=== PATIENT | male | born 1955 | race Hispanic/Latino ===

== ENCOUNTER 2019-02-21 12:40 | Emergency (ER) | payer SELFPAY | END 2019-02-21 14:07 | disposition home or self-care (01) | LOC: EDH 12:40 | DX: J40 Bronchitis, not specified as acute or chronic (principal); R42 Dizziness and giddiness; Z90.49 Acquired absence of other specified parts of digestive tract | CPT/HCPCS: 36415; 71045; 83880; 84484; 93005 ==

== ENCOUNTER → 2019-07-05 | Outpatient (CLI) | payer OTHER | END | disposition home or self-care (01) | LOC: OIH 09:56 | PROVIDERS: ATTEND Internal Medicine Cardiovascular Disease | DX: Z13.6 Encounter for screening for cardiovascular disorders (principal) | CPT/HCPCS: 75571 ==

== ENCOUNTER 2024-04-10 10:04 | Day surgery (SDC) | payer MEDICARE ==
[2024-04-06 10:14] LABS: BASOPHILS # (AUTO) 0.06 K/uL (0.00-0.20); BASOPHILS % (AUTO) 0.6 % (0.0-5.0); EOSINOPHILS # (AUTO) 0.06 K/uL (0.00-0.70); EOSINOPHILS % (AUTO) 0.6 % (0.0-8.0); HEMATOCRIT 45.9 % (42-54); IMMATURE GRANULOCYTE ABSOLUTE 0.04 K/uL (0-1); LYMPHOCYTES # (AUTO) 1.5 K/uL (1.0-4.8); LYMPHOCYTES % (AUTO) 14.7 % (21.0-51.0); MEAN CORPUSCULAR HEMOGLOBIN 29.5 pg (27.0-33.0); MEAN CORPUSCULAR VOLUME 86.9 fL (79-99); MONOCYTES # (AUTO) 0.8 K/uL (0.1-1.0); MONOCYTES % (AUTO) 7.5 % (3.0-13.0); NEUTROPHILS # (AUTO) 7.9 K/uL (1.8-7.7); NEUTROPHILS % (AUTO) 76.2 % (40.0-77.0); PLATELET COUNT (AUTO) 300 K/uL (130-400); RED BLOOD CELL COUNT(AUTO) 5.28 MIL/uL (4.50-6.20); RED CELL DISTRIBUTION WIDTH 13.6 % (11.0-15.5); WHITE BLOOD COUNT (AUTO) 10.3 K/uL (4.8-10.8)
[2024-04-06 10:25] VITALS: BP 134/81; PULSE 86; RESP 18
[2024-04-06 10:28] LABS: CREATININE 1.4 mg/dL (0.5-1.3); POTASSIUM 4.1 mmol/L (3.5-5.1)
[2024-04-06 10:36] LABS: APPEARANCE,URINE CLEAR (CLEAR); BILIRUBIN,URINE NEGATIVE (NEGATIVE); COLOR,URINE LIGHT-YELLOW (YELLOW); GLUCOSE, URINE (UA) NEGATIVE (NEGATIVE); KETONES,URINE NEGATIVE (NEGATIVE); LEUKOCYTE ESTERASE ,URINE NEGATIVE Leu/uL (NEGATIVE); NITRATE,URINE NEGATIVE (NEGATIVE); OCCULT BLOOD,URINE MODERATE (NEGATIVE); PROTEIN,URINE NEGATIVE (NEGATIVE); UROBILINOGEN,URINE 0.2 mg/dL (0.2-1.0)
[2024-04-06 10:47] LABS: ADD UA MICROSCOPIC YES
[2024-04-06 10:51] LABS: BACTERIA,URINE Rare /HPF (None Seen); RBC,URINE 0-1 /HPF (0-1); SQUAMOUS EPITHELIAL CELL,UR Rare /HPF (0-2); WBC,URINE 0-1 /HPF (0-1)
[2024-04-06 10:53] LABS: INR 0.96 (0.85-1.15); PROTHROMBIN TIME 11.4 SEC (9.6-11.6)
[2024-04-06 10:54] LABS: PARTIAL THROMBOPLASTIN TIME 30.2 SEC (26.3-35.5)
[2024-04-06 10:57] LABS: B-TYPE NATRIURETIC PEPTIDE 113 pg/mL (0-100)
[2024-04-10] VITALS (9 sets, daily range): BP systolic 91–152; BP diastolic 57–90; PULSE 67–104; RESP 14–18
[~2024-04-10] VITALS: Ht 175.3 cm; Wt 84.0 kg
[~2024-04-10 10:04] MED LIST: ASPI-1521 PO; ATOR40TA69 PO; CLOP-31 PO; METO25 PO
[2024-04-10] MEDS ORDERED: HEPARIN 10,000 UNIT/10ML (1,000 UNIT/ML) VIAL ONE (10:36)
[2024-04-10] MEDS ORDERED: NITROGLYCERIN 50MG VIAL ONE (10:36)
[2024-04-10] MEDS ORDERED: IOHEXOL-350 75 ML VIAL IV ONE (10:36)
[2024-04-10] MEDS ORDERED: SODIUM BICARB 50MEQ 50ML VIAL 50 ML ONE (10:36)
[2024-04-10] MEDS ORDERED: LIDOCAINE HCL 400MG/20ML VIAL ONE (10:36)
[2024-04-10] MEDS ORDERED: MEPERIDINE-PF 25 MG/ML SYG ONE ×3 (10:47→12:03)
[2024-04-10] MEDS ORDERED: NICARDIPINE 25MG INJ IV ONE (10:48)
[2024-04-10] MEDS ORDERED: MIDAZOLAM HCL 1 MG/ML 2ML VIAL ONE ×3 (10:48→12:03)
[2024-04-10] MEDS: 0.9%NACL 1000ML 1,000 ML IV ONE (10:49)
[2024-04-10] MEDS ORDERED: METOPROLOL TARTRATE 1 MG/ML 5ML VIAL IV ONE ×3 (12:31→12:39)
[2024-04-10] MEDS ORDERED: NITROGLYCERIN 4.1 GM SPRAY TL ONE (12:39)
[2024-04-10] MEDS ORDERED: 0.9%NACL 1000ML 1,000 ML IV SCH (13:00)
== END 2024-04-10 16:30 | disposition home or self-care (01) ==
LOC: DAH 10:04
PROVIDERS: ATTEND Internal Medicine Cardiovascular Disease
DX: I25.119 Atherosclerotic heart disease of native coronary artery with unspecified angina pectoris (principal); I25.2 Old myocardial infarction; E78.5 Hyperlipidemia, unspecified; Z79.01 Long term (current) use of anticoagulants; Z79.899 Other long term (current) drug therapy; Z90.49 Acquired absence of other specified parts of digestive tract; Z95.5 Presence of coronary angioplasty implant and graft; Z98.890 Other specified postprocedural states
CPT/HCPCS: 80048; 83880; 85025; 85610; 85730; 81001; 36415 ×2; 71045; 93005; 85347; 93458; C9600 ×2; C1769 ×2; C1725 ×2; C1874 ×4; C1894; A4649; C1887; J3490 ×7; J7030; J1644 ×2; J2250 ×3; J2175 ×3; Q9967; A4215; A4222; A4221; A4663; A4216; A4606; A4223 ×3; 96360; 96361; 99156; 99157

== ENCOUNTER 2025-02-16 08:24 | Observation (INO) | payer MEDICARE ==
[~2025-02-16] VITALS: Ht 175.3 cm; Wt 85.7 kg
--- NOTE | 2025-02-16 09:00 | ERN ---
General Chief Complaint: Chest Pain Stated Complaint: CP History of Present Illness Initial Comments History of present illness: 70-year-old male with past medical history of hypertension, CAD status post stents, GERD was brought in by EMS with complaints of sudden onset of chest pain since 5:00 a.m. today in the morning. As per the patient he was awake when he started experiencing central chest pain, 2 to 3/10 in intensity, that comes and goes, which lasts for few seconds. He feels nauseous. Denies any radiation of the pain, sweating, shortness of breath, abdominal pain, vomiting, fever, any change in bowel or bladder habits. Patient was treated with aspirin by the EMS personnel. As per the EMS, the initial EKG showed T-wave inversion in lead 3 and AVF. At the time of presentation his pulse rate was 76 per minute, respiratory rate 15 per minute, blood pressure 133/79, saturation 98% on room air As per the cardiac clinical lab scientist report dated 04/19/2024, he had history of inferior wall [place] was found to have severe three-vessel coronary artery disease. He is status post mid and distal RCA stents, high EOMI standing, distal LAD stenting, mid LAD stenting. Mirtha Lindsey II, MD was ballistic technician at that time. As per the patient he missed his cardiology appointment this November. Timing/Duration: 4-6 hours Location: central Radiation: no radiation Activities at Onset: none Prior Chest Pain/Cardiac Brian: cardiac cath, heart attack Past Medical History Past Medical History: CAD, Hypertension Past Surgical History: Appendectomy, Other Surgical History Other: CARDIAC STENTS Social History Social History: ETOH ROS Dictation REVIEW OF SYSTEMS Positive for chest pain CONSTITUTIONAL: Denies fevers, chills, or night sweats. No unintentional weight loss reported. ENT: No hearing loss, otalgia, otorrhea, rhinitis, rhinorrhea, hoarseness, or sore throat. CARDIOVASCULAR: Denies any exertional angina, dyspnea on exertion, orthopnea, paroxysmal nocturnal dyspnea, palpitations claudication. PULMONARY: Denies any shortness of breath, cough, phlegm / sputum, hemoptysis, pleuritic chest pain. SLEEP: Denies morning headaches, daytime somnolence or napping. Denies difficulty falling asleep, staying asleep, waking from sleep. Denies knowledge of snoring. GASTROINTESTINAL: Denies any type of dysphagia to either liquids or solids. Denies nausea, vomiting, abdominal pain, diarrhea, constipation, blood in stools . NEUROLOGICAL: Denies headache, motor weakness, sensory deficit, vertigo / spinning sensation, gait abnormalities, or tremors. GENITOURINARY: Denies frequency, urgency, nocturia, hematuria or incontinence, low urinary stream, straining to void, urinary intermittency or hesitancy ENDOCRINOLOGY: Denies polyuria, polydipsia, polyphagia or heat / cold intolerance. HEMATOLOGY: Denies thrombophilia / previous clots, or coagulopathy / bleeding disorders. ONCOLOGIC: Denies personal history of malignancy. DERMATOLOGIC: Denies rashes or pruritus. PSYCHIATRIC: Denies any suicidal or homicidal ideation. Denies hallucinations. Physical Exam Physical Exam Dictation PHYSICAL EXAM GENERAL APPEARANCE: Well nourished . Awake and alert. Oriented to time, place and person. No acute cardiopulmonary distress. HEENT: Head normocephalic , atraumatic. Sclera anicteric . Pupils are round and reactive. Extraocular movements intact . No conjunctival injection. No nasal congestion. No throat congestion .Oral mucosa moist. NECK: Supple. No JVD. No thyromegaly. No submental, submandibular, pre- /postauricular, occipital or supraclavicular lymphadenopathy. No carotid bruits. CHEST: Normal chest expansion. No Telemetry. LUNGS: No wheezing or rales CARDIOVASCULAR: Regular rate and rhythm. Heart sounds were muffled . ABDOMEN: Soft, nontender, and nondistended. There is no rebound tenderness, voluntary guarding, or rigidity. No hepatosplenomegaly. Bowel sounds normal in all four quadrants . NEUROLOGICAL: Cranial nerves II-XII grossly intact. Motor is 5/5 in bilateral upper and lower extremities . No sensory deficits. EXTREMITIES: No edema, No cyanosis , No clubbing. Good capillary refill. SKIN: No skin breakdown. No rashes or lesions . PSYCHIATRY: Normal affect .No auditory or visual hallucinations. Normal speech. No dysarthria. Results Laboratory and Microbiology Lab and Micro Result Laboratory Tests Test 02/16/25 09:00 02/16/25 09:38 White Blood Count 10.7 K/uL (4.8-10.8) Red Blood Count 5.14 MIL/uL (4.50-6.20) Hemoglobin 15.6 g/dL (14.0-18.0) Hematocrit 46.8 % (42-54) Mean Corpuscular Volume 91.1 fL (79-99) Mean Corpuscular Hemoglobin 30.4 pg (27.0-33.0) Mean Corpuscular Hemoglobin Concent 33.3 g/dL (32.0-36.0) Red Cell Distribution Width 13.1 % (11.0-15.5) Platelet Count 314 K/uL (130-400) Mean Platelet Volume 8.6 fL (7.5-10.5) Immature Granulocyte % (Auto) 0.3 % (0-1) Neutrophils (%) (Auto) 78.3 % (40.0-77.0) H Lymphocytes (%) (Auto) 14.2 % (21.0-51.0) L Monocytes (%) (Auto) 6.5 % (3.0-13.0) Eosinophils (%) (Auto) 0.2 % (0.0-8.0) Basophils (%) (Auto) 0.5 % (0.0-5.0) Neutrophils # (Auto) 8.4 K/uL (1.8-7.7) H Lymphocytes # (Auto) 1.5 K/uL (1.0-4.8) Monocytes # (Auto) 0.7 K/uL (0.1-1.0) Eosinophils # (Auto) 0.02 K/uL (0.00-0.70) Basophils # (Auto) 0.05 K/uL (0.00-0.20) Absolute Immature Granulocyte (auto 0.03 K/uL (0-1) Nucleated Red Blood Cells 0.0 % (0.0-0.19) Sodium Level 134 mmol/L (136-145) L Potassium Level 3.9 mmol/L (3.5-5.1) Chloride Level 100 mmol/L (101-111) L Carbon Dioxide Level 26 mmol/L (21-32) Blood Urea Nitrogen 20 mg/dL (7-18) H Creatinine 1.6 mg/dL (0.5-1.3) H Glomerular Filtration Rate Calc 46 mL/min (>90) Random Glucose 115 mg/dL (70-105) H Total Calcium 9.0 mg/dL (8.5-10.1) Total Bilirubin 0.4 mg/dL (0.2-1.0) Direct Bilirubin 0.1 mg/dL (0.0-0.3) Aspartate Amino Transf (AST/SGOT) 22 U/L (10-37) Alanine Aminotransferase (ALT/SGPT) 19 U/L (12-78) Alkaline Phosphatase 115 U/L (50-136) Total Creatine Kinase 145 U/L (21-232) Troponin I High Sensitivity 15.8 ng/L (4-75) B-Type Natriuretic Peptide 53 pg/mL (0-100) Total Protein 7.6 g/dL (6.0-8.3) Albumin 3.7 g/dL (3.5-5.0) Lipase 56 U/L (16-77) Urine Color LIGHT-YELLOW (YELLOW) Urine Appearance CLEAR (CLEAR) Urine pH 5.5 (5.0-8.0) Urine Specific [place] 1.015 (1.001-1.031) Urine Protein 10 mg/dL (NEGATIVE) H Urine Glucose (UA) NEGATIVE mg/dL (NEGATIVE) Urine Ketones NEGATIVE mg/dL (NEGATIVE) Urine Occult Blood SMALL (NEGATIVE) H Urine Nitrate NEGATIVE (NEGATIVE) Urine Bilirubin NEGATIVE mg/dL (NEGATIVE) Urine Urobilinogen 0.2 mg/dL (0.2-1.0) Urine Leukocyte Esterase NEGATIVE Leisa/uL Urine RBC 2-5 /HPF (0-1) H Urine WBC 0-1 /HPF (0-1) Urine Bacteria None /HPF (None Seen) EKG/XRAY/US/CT/MRI EKG Comment Regular sinus rhythm with a ventricular rate of 76 beats per minute Left axis deviation VA interval 189, QTC 410 T-wave inversion in lead 3, AVF No ST segment elevation or depression seen Orders, Meds, Vital Signs Orders Procedure Category Date Status Time Cardiac Panel LAB 02/16/25 Complete 08:35 Cbc With Differential LAB 02/16/25 Complete 08:35 Basic Metabolic Panel LAB 02/16/25 Complete 08:35 B-Type Natriuretic LAB 02/16/25 Complete Peptide 08:35 Lipase LAB 02/16/25 Complete 08:35 Chest 1vw RAD 02/16/25 Resulted 08:35 Hepatic Function Panel LAB 02/16/25 Complete 08:35 Urinalysis Profile LAB 02/16/25 Complete 08:41 12 Lead Ekg Tracing- EKG 02/16/25 Complete Technical 09:27 Vital Signs Date Time Temp Pulse Resp B/P (MAP) Pulse Ox O2 Delivery O2 Flow Rate FiO2 02/16/25 09:12 98.2 78 17 99 Room Air* 0 21 02/16/25 08:34 76 15 133/79 98 Room Air 0 8:40 a.m. patient is hemodynamically stable. He does not complain of chest pain right now. Pending cardiac panel results. Aspirin given by the EMS DIFFERENTIAL DIAGNOSIS : ACUTE CORONARY SYNDROME, CORONARY ARTERY DISEASE, ACUTE GASTRITIS RATIONALE: TESTS CONSIDERED AND ORDERED SECONDARY TO SHARED DECISION MAKING INCLUDE: I WILL RE-EVALUATE THE PATIENT AFTER TREATMENT AND DIAGNOSTIC EXAMS HAVE RETURNED TO DETERMINE WHETHER THEY REQUIRE FURTHER TESTING, CAN BE SAFELY DISCHARGED HOME, OR NEED ADMISSION FOR FURTHER TREATMENT AND EVALUATION. GIVEN THE SOCIAL DETERMINANTS OF HEALTH AFFECTING CARE, INCLUDING LITERACY, ACCESS TO MEDICAL CARE, PRESCRIPTION DRUG MANAGEMENT, AND [id number] DRUGS, I WILL ENSURE THAT TREATMENT PLANS ARE TAILORED ACCORDINGLY. THERE ARE NO SOCIAL CONCERNS WITH THIS PATIENT. RISK OF COMPLICATION AND/OR MORBIDITY OR MORTALITY OF PATIENT MANAGEMENT: NONE NEED FOR HOSPITALIZATION: PATIENT DOES NOT MEET CRITERIA FOR HOSPITALIZATION. NEED FOR EMERGENCY MAJOR/MINOR SURGERY: NO PRESCRIPTION DRUG MANAGEMENT PRESCRIPTIONS WILL INCLUDE SYMPTOMATIC CARE MEDICATIONS-PER MEDICATION RECONCILIATION PREVIOUS OUTSIDE RECORDS REVIEWED: OLD ER VISITS. PATIENT'S PRIOR EXTERNAL MEDICAL RECORDS FROM OTHER ER VISITS WERE REVIEWED BY ME INDICATED. PRIOR TESTING AND RESULTS FROM PREVIOUS VISITS WERE REVIEWED. PRIOR TESTS WERE TAKEN INTO ACCOUNT WITH MEDICAL DECISION MAKING AND RESOURCE UTILIZATION, INDEPENDENT HISTORIAN/HISTORIANS WERE USED TO OBTAIN COMPLETE MEDICAL HISTORY. I INDEPENDENTLY INTERPRETED THE TEST THAT WERE PERFORMED, RESULTS WERE REVIEWED BY ME AND CONSIDERED FINDINGS ON RADIOLOGY. MEDICAL MANAGEMENT AND EXAMINATION INTERPRETATION DISCUSSIONS WAS DONE BY ME WITH OTHER QUALIFIED HEALTHCARE PROFESSIONALS INDICATED FOR THE PATIENT'S CARE. REVALUATION: PATIENT'S LABS ARE UNREMARKABLE, TROPONINS NORMAL. ABNORMAL RENAL FUNCTION. PATIENT WILL BE ADMITTED TO THE HOSPITAL GIVEN HIGH HEART SCORE. DISPOSITION : INPATIENT HEART Score for Major Cardiac Events RESULT SUMMARY: 5 points Moderate Score (4-6 points) Risk of MACE of 12-16.6%. INPUTS: History > 0 = Slightly suspicious EKG > 1 = Non-specific repolarization disturbance Age > 2 = ?65 Risk factors > 2 = ?3 risk factors or history of atherosclerotic disease Initial troponin > 0 = ?normal limit DX & DISP Departure Impression: Primary Impression: Coronary artery disease Condition: Stable Referrals: COURTNEY CROSS MD (PCP) I performed a substantive portion of the visit. I have reviewed and personally made and approve the management plan that is documented in the notes by myself with SUELLEN/resident. I acknowledged full responsibility for the patient's management plan. CC: Chest pain Historian: Patient Comorbidities: Hypertension, CAD with stent placement Limitations by social determinants of health: None Differential diagnosis: ACS, STEMI, NSTEMI, biliary disease, GI disease, other. Vital signs: Mild hypertension otherwise stable remained stable in the ER CXR ( independently interpreted by me ): No cardiomegaly pleural effusions focal infiltrates. EKG (independently interpreted by me ): sinus rhythm, rate 76, left axis deviation, early R-wave progression, intervals are stable no STEMI. Independently interpreted by me. Labs (independently ordered and interpreted by me): Normal CBC, electrolytes stable, creatinine 1.6. External chart review shows CKD, baseline for patient. Liver enzymes are stable lipase stable. Troponin was normal x1. Heart score of four. We will admit for treatment evaluation Treatment in ED prior to arrival: Nitroglycerin, 324 mg of aspirin. consultation: Hospitalist for admission Critical Care Note Comments JESUS KELLOGG MD Feb 16, 2025 09:00 TUCKER DAVILA DO Feb 16, 2025 09:58
[2025-02-16 09:14] LABS: BASOPHILS # (AUTO) 0.05 K/uL (0.00-0.20); BASOPHILS % (AUTO) 0.5 % (0.0-5.0); EOSINOPHILS # (AUTO) 0.02 K/uL (0.00-0.70); EOSINOPHILS % (AUTO) 0.2 % (0.0-8.0); HEMATOCRIT 46.8 % (42-54); IMMATURE GRANULOCYTE ABSOLUTE 0.03 K/uL (0-1); LYMPHOCYTES # (AUTO) 1.5 K/uL (1.0-4.8); LYMPHOCYTES % (AUTO) 14.2 % (21.0-51.0); MEAN CORPUSCULAR HEMOGLOBIN 30.4 pg (27.0-33.0); MEAN CORPUSCULAR HGB CONC 33.3 g/dL (32.0-36.0); MEAN CORPUSCULAR VOLUME 91.1 fL (79-99); MONOCYTES # (AUTO) 0.7 K/uL (0.1-1.0); MONOCYTES % (AUTO) 6.5 % (3.0-13.0); NEUTROPHILS # (AUTO) 8.4 K/uL (1.8-7.7); NEUTROPHILS % (AUTO) 78.3 % (40.0-77.0); PLATELET COUNT (AUTO) 314 K/uL (130-400); RED BLOOD CELL COUNT(AUTO) 5.14 MIL/uL (4.50-6.20); RED CELL DISTRIBUTION WIDTH 13.1 % (11.0-15.5); WHITE BLOOD COUNT (AUTO) 10.7 K/uL (4.8-10.8)
[2025-02-16 09:27] LABS: CREATININE 1.6 mg/dL (0.5-1.3); POTASSIUM 3.9 mmol/L (3.5-5.1)
[2025-02-16 09:34] LABS: ALBUMIN 3.7 g/dL (3.5-5.0); BILIRUBIN,DIRECT 0.1 mg/dL (0.0-0.3); BILIRUBIN,TOTAL 0.4 mg/dL (0.2-1.0); TOTAL PROTEIN, SERUM 7.6 g/dL (6.0-8.3)
--- NOTE | 2025-02-16 09:34 | EKG ---
[facility] Test Date: 2025-02-16 Test Time: 08:20:59 Pat Name: HERMELINDO BARON Department: [facility] Room: ED Gender: M Title I Instructional Assistant: [id number] : 1955 Requested By: TUCKER DAVILA Order Number: [id number] Reading MD: Corie Beard Measurements Intervals [place] Rate: 76 P: 54 AK: 189 QRS: -32 QRSD: 83 T: -12 QT: 363 QTc: 410 Interpretive Statements Sinus rhythm Inferior infarct, age indeterminate Compared to ECG 04/06/2024 09:00:02 No significant changes Electronically Signed On 02-17-2025 16:46:23 CDT by Corie Beard Please click the below link to view image of tracing.
[2025-02-16 09:40] LABS: B-TYPE NATRIURETIC PEPTIDE 53 pg/mL (0-100)
[2025-02-16 10:00] LABS: APPEARANCE,URINE CLEAR (CLEAR); BILIRUBIN,URINE NEGATIVE (NEGATIVE); COLOR,URINE LIGHT-YELLOW (YELLOW); GLUCOSE, URINE (UA) NEGATIVE (NEGATIVE); KETONES,URINE NEGATIVE (NEGATIVE); LEUKOCYTE ESTERASE ,URINE NEGATIVE Leu/uL (NEGATIVE); NITRATE,URINE NEGATIVE (NEGATIVE); OCCULT BLOOD,URINE SMALL (NEGATIVE); PH,URINE 5.5 (5.0-8.0); PROTEIN,URINE 10 mg/dL (NEGATIVE); UROBILINOGEN,URINE 0.2 mg/dL (0.2-1.0)
[2025-02-16 10:02] LABS: ADD UA MICROSCOPIC YES
--- NOTE | 2025-02-16 10:08 | HMCIMG ---
PORTABLE CHEST RADIOGRAPH INDICATION: chest pain COMPARISON: 04/06/2024 FINDINGS: Heart size is normal. The pulmonary vascularity and mignon appear normal. No abnormal pulmonary parenchymal opacity or consolidation identified. No significant pleural effusion noted. No pneumothorax detected. IMPRESSION: No radiographic evidence for any acute cardiopulmonary process.
[2025-02-16 10:10] LABS: MUCUS,URINE RARE LPF (None Seen); WBC,URINE 0-1 /HPF (0-1)
[2025-02-16] MEDS ORDERED: ondanSETRON 4MG INJ IVP PRN (12:00)
[2025-02-16] MEDS ORDERED: traMADol HCL 50 MG TABLET PO PRN (12:00)
[2025-02-16] MEDS ORDERED: LACTULOSE 20 GM/30 ML UDCUP PO PRN (12:00)
[2025-02-16] MEDS ORDERED: LAbetaLOL 20MG SYG IV PRN (12:00)
--- NOTE | 2025-02-16 12:07 | HP ---
[facility] HISTORY & PHYSICAL Date Patient Seen: Feb 16, 2025 Time of Visit: 12:07 Supervising Physician: Dr. Pierce Craven Primary Care Physician: COURTNEY CROSS MD (PCP) Outpatient Specialists: Cardiology Dr. Howard Inpatient Consults: Cardiology PROBLEM LIST: Chest pain rule out ACS, heart score for major cardiac events =5 Hypertension. Hyperlipidemia. GERD. History of severe three-vessel coronary artery disease s/p mid and distal RCA stents, high EOMI stenting, distal LAD stenting, mid LAD stenting by Mirtha Lindsey II, MD 02/06/24. HPI: This is a 70-year-old male patient who has a past medical history that is significant for hypertension, hyperlipidemia, GERD and severe three-vessel coronary artery disease s/p mid and distal RCA stents, high EOMI stenting, distal LAD stenting, mid LAD stenting by Mirtha Lindsey II, MD who was nurses superintendent at that time. The patient had a follow up appointment this past month which he missed. Per patient's report, he was doing well until about 5:00 a.m. today he was suddenly awakened by substernal chest pain which he rated at 2-3/10. Considering his prior cardiac history, the patient called EMS and was transported here to the emergency department for further evaluation and management of his condition. Upon initial evaluation initial vital signs were unremarkable. Laboratory data obtained was notable for elevated renal parameters with a BUN 20, creatinine of 1.6. Troponins were 15.8. Chest x-ray was not indicative of any airspace disease. During the ER stay, the patient denied any further chest pain. The patient was admitted for inpatient observation and to rule out acute coronary syndrome. At the time of my visit, the patient was in the emergency department awaiting bed assignment. The staff nurse reports no acute events overnight. No other complaint. PAST MEDICAL HX: see above PAST SURGICAL HX: noncontributory SOCIAL HISTORY: No tobacco, ETOH, or illicit drug use Coded Allergies: No Known Drug Allergies (Unverified Allergy, Unknown, 02/06/24) REVIEW OF SYSTEMS: 12 point ROS reviewed with patient. Pertinent positives mentioned above. Otherwise negative. PHYSICAL EXAM: GENERAL: Alert, weak, awake oriented x 3 HEENT: EOMI, Sclera non icteric, moist mucosa NECK: Supple, no JVD, trachea midline LUNGS: Clear breath sounds bilaterally. No wheezes HEART: Regular rate and rhythm. Normal S1 and S2, without murmurs ABD: Abdomen soft, nontender. Bowel sounds present EXT: No clubbing cyanosis or edema NEURO: Alert and oriented to person, follows commands Vital Signs (last 8hr) Date Time Temp Pulse Resp B/P (MAP) Pulse Ox O2 Delivery O2 Flow Rate FiO2 02/16/25 09:12 98.2 78 17 99 Room Air* 0 21 02/16/25 08:34 76 15 133/79 98 Room Air 0 LABS: Hematology Labs: Test 02/16/25 09:00 Range/Units White Blood Count 10.7 4.8-10.8 K/uL Red Blood Count 5.14 4.50-6.20 MIL/uL Hemoglobin 15.6 14.0-18.0 g/dL Hematocrit 46.8 42-54 % Mean Corpuscular Volume 91.1 79-99 fL Mean Corpuscular Hemoglobin 30.4 27.0-33.0 pg Mean Corpuscular Hemoglobin Concent 33.3 32.0-36.0 g/dL Red Cell Distribution Width 13.1 11.0-15.5 % Platelet Count 314 130-400 K/uL Mean Platelet Volume 8.6 7.5-10.5 fL Immature Granulocyte % (Auto) 0.3 0-1 % Neutrophils (%) (Auto) 78.3 H 40.0-77.0 % Lymphocytes (%) (Auto) 14.2 L 21.0-51.0 % Monocytes (%) (Auto) 6.5 3.0-13.0 % Eosinophils (%) (Auto) 0.2 0.0-8.0 % Basophils (%) (Auto) 0.5 0.0-5.0 % Neutrophils # (Auto) 8.4 H 1.8-7.7 K/uL Lymphocytes # (Auto) 1.5 1.0-4.8 K/uL Monocytes # (Auto) 0.7 0.1-1.0 K/uL Eosinophils # (Auto) 0.02 0.00-0.70 K/uL Basophils # (Auto) 0.05 0.00-0.20 K/uL Absolute Immature Granulocyte (auto 0.03 0-1 K/uL Nucleated Red Blood Cells 0.0 0.0-0.19 % Chemistry Labs: Test 02/16/25 09:00 Range/Units Sodium Level 134 L 136-145 mmol/L Potassium Level 3.9 3.5-5.1 mmol/L Chloride Level 100 L 101-111 mmol/L Carbon Dioxide Level 26 21-32 mmol/L Blood Urea Nitrogen 20 H 7-18 mg/dL Creatinine 1.6 H 0.5-1.3 mg/dL Glomerular Filtration Rate Calc 46 >90 mL/min Random Glucose 115 H 70-105 mg/dL Total Calcium 9.0 8.5-10.1 mg/dL Total Bilirubin 0.4 0.2-1.0 mg/dL Direct Bilirubin 0.1 0.0-0.3 mg/dL Aspartate Amino Transf (AST/SGOT) 22 10-37 U/L Alanine Aminotransferase (ALT/SGPT) 19 12-78 U/L Alkaline Phosphatase 115 50-136 U/L Total Creatine Kinase 145 21-232 U/L Troponin I High Sensitivity 15.8 4-75 ng/L B-Type Natriuretic Peptide 53 0-100 pg/mL Total Protein 7.6 6.0-8.3 g/dL Albumin 3.7 3.5-5.0 g/dL Lipase 56 16-77 U/L DIAGNOSTICS / RADIOLOGY RESULTS: [ ] PLAN Patient was admitted for observation status. We will trend the troponin and monitor for any significant increase. We will request a 2D echo given the last echo was done on 02/07/2024. We will consult the nurses superintendent's for further input on management of his condition. Currently, vital signs are stable, he is not complaining of any chest pain, there is no shortness of breath and chest x- ray did not show any acute airspace disease. I am going to request a D-dimer with next troponin draw. We will monitor the patient's progress and response to management. We will continue to provide general supportive care, GI and DVT prophylaxis. Further orders per attending MD and hospital course. NEURO: Minimize central acting medications as possible. Maintain fall precautions, adequate lighting during the day PULMONARY: Supplemental 02 as needed. Maintain aspiration precautions at all times CARDIOVASCULAR: Follow hemodynamics. Vital signs per facility protocol GI & NUTRITION: Continue with nutritional support. Continue stool softeners and laxatives as needed. KIDNEYS & ELECTROLYTES: Strict monitoring of intake, output and overall fluid balance. Avoid nephrotoxic medications to the extent possible. Medications to be dosed according to renal function. Monitor electrolytes and replace as needed ENDOCRINE: Maintain blood glucose between 100-180 at all times. Hypoglycemia protocol in place INFECTIOUS DISEASE: Trend temperature, WBC and procalcitonin level Follow cultures, deescalate antibiotics as soon as possible. Panculture if new onset fever ONCOLOGY/HEMATOLOGY/COAGULATION: Monitor for s/s of bleeding Monitor hemoglobin, coagulation studies as needed SKIN: Pressure ulcer prevention per facility protocol Specialty mattress ORTHO/REHAB: Continue PT/OT Prophylaxis: Continue GI and DVT prophylaxis Code Status: Full Resuscitation Disposition: TBD Other: Total patient care time exceeds 35 minutes excluding all procedures. ABBY ROBLES NP Feb 16, 2025 12:07
[2025-02-16] MEDS: metoPROLOL tartRATE 25 MG TAB PO SCH (21:00)
[2025-02-16] MEDS: acetaMINOPHEN 325 MG TAB PO PRN (21:30)
[2025-02-16] MEDS: atorVAStatin 40 MG TABLET PO SCH (21:30)
--- NOTE | 2025-02-16 21:36 | NUR ---
LOPRESSOR NOT ADMIN AT THIS TIME. PT STATES HE TOOK HIS HOME MEDICATION OF PLAVIX AND LOPRESSOR AT APPROXIMATELY 1730. PT EDUCATED ON THIS IMPORTANCE OF NOT TAKING HOME MEDICATION WITHOUT DR. BORREGO WHILE ADMITTED IN THE HOSPITAL. PT VERBALIZED UNDERSTANDING.
--- NOTE | 2025-02-16 22:05 | HMCSR ---
APPROVED REPORT EXAM: Two-dimensional and M-mode echocardiogram with Doppler and color Doppler. INDICATION ICD: ACS 2D Dimensions RVDd4.5 cmLVEF(%)54.9 (>50%)LVED Vol(simp.)94.4 mL IVSd0.9 (0.7-1.1cm)FS(%)28 %LVES Vol(simp.)55.2 mL LVDd4.2 (3.8-5.6cm)LA (2D)4.3 (1.6-4.0cm)LVEF(%, simp.)42 % PWd1.0 (0.7-1.1cm)Ao Root(2D)3.3 (2.0-3.7cm)LA ESV INDEX (BP)27.30 mL/m2 LVDs3.0 (2.5-4.0cm)LVOT diam2.6 (1.8-2.4cm) Deformation Strain Apical 4-15.0 % Apical 2-17.0 % Apical 3-16.0 % Global Strain-16.0 % M-Mode Dimensions EPSS1.3 cm Aortic Valve AoV Vmax1.3 m/Sugey Peak GR6.7 mmHgLVOT Vmax1.0 m/s AoV VTI0.3 mAo Mean GR3.6 mmHgLVOT VTI0.21 m SYLVESTER (VMAX)4.1 cm2AVA (VTI) 4.1 cm2 Mitral Valve MV E Vmax49.8 cm/sDECEL Fhoh361 ms MV A Vmax82.1 cm/sP 1/2 T32 ms E/A ratio0.6MVA (PHT)6.9 cm2 TDI E/E' Medial6.2 Medial E' Peak V8.00 cm/s Tricuspid Valve TR Vmax2.0 m/sRVSP15.2 mmHg TR Peak GR17.1 mmHg Left Ventricle Left ventricular cavity size is normal. GS -16%. Global hypokinesis of the left ventricle. There is n ormal left ventricular wall thickness. LVEF is 45-50%. The left ventricular diastolic function is nor mal. Right Ventricle The right ventricle is normal size. The right ventricular systolic function is normal. Atria The left atrium size is normal. The right atrium size is normal. Aortic Valve The aortic valve is normal in structure and function. No aortic regurgitation is present. There is no aortic valvular stenosis. Mitral Valve The mitral valve is normal in structure and function. There is no mitral valve regurgitation noted. T hickening of the anterior mitral valve leaflet. There is no mitral valve stenosis. Tricuspid Valve The tricuspid valve is normal in structure and function. There is trace tricuspid valve regurgitation noted. Pulmonic Valve Pulmonic valve is not well visualized. Great Vessels The IVC is normal in size and collapses >50% with inspiration. Pericardium No pericardial effusion. Other Information Quality : GoodRhythm : NSR Conclusion LVEF is 45-50%. Global hypokinesis of the left ventricle. Thickening of the anterior mitral valve leaflet.
[2025-02-17 07:20] LABS: BASOPHILS # (AUTO) 0.04 K/uL (0.00-0.20); BASOPHILS % (AUTO) 0.4 % (0.0-5.0); EOSINOPHILS # (AUTO) 0.15 K/uL (0.00-0.70); EOSINOPHILS % (AUTO) 1.6 % (0.0-8.0); HEMATOCRIT 47.3 % (42-54); IMMATURE GRANULOCYTE ABSOLUTE 0.03 K/uL (0-1); LYMPHOCYTES # (AUTO) 1.8 K/uL (1.0-4.8); LYMPHOCYTES % (AUTO) 19.1 % (21.0-51.0); MEAN CORPUSCULAR HEMOGLOBIN 30.3 pg (27.0-33.0); MEAN CORPUSCULAR HGB CONC 33.2 g/dL (32.0-36.0); MEAN CORPUSCULAR VOLUME 91.1 fL (79-99); MONOCYTES # (AUTO) 0.7 K/uL (0.1-1.0); MONOCYTES % (AUTO) 7.6 % (3.0-13.0); NEUTROPHILS # (AUTO) 6.7 K/uL (1.8-7.7); PLATELET COUNT (AUTO) 297 K/uL (130-400); RED BLOOD CELL COUNT(AUTO) 5.19 MIL/uL (4.50-6.20); RED CELL DISTRIBUTION WIDTH 13.2 % (11.0-15.5); WHITE BLOOD COUNT (AUTO) 9.5 K/uL (4.8-10.8)
[2025-02-17 07:34] LABS: CREATININE 1.5 mg/dL (0.5-1.3); POTASSIUM 4.2 mmol/L (3.5-5.1)
[2025-02-17 08:00] VITALS: O2SAT 96
[2025-02-17 08:06] VITALS: BP 130/79; PULSE 76; RESP 19; TEMP 97.8
[2025-02-17] MEDS: cloPIDOgrel 75MG TAB PO SCH (09:53)
[2025-02-17] MEDS: ASPIRIN 81 MG EC TAB PO SCH (09:53)
[2025-02-17] MEDS: PANTOPrazole 40 MG TAB DR PO SCH (09:53)
[2025-02-17] MEDS: ENOXAPARIN SODIUM 30 MG/0.3 ML SQ SCH (09:54)
[2025-02-17 11:46] VITALS: BP 120/78; PULSE 78; RESP 20; TEMP 97.8
--- NOTE | 2025-02-17 12:33 | NUR ---
PATIENT ALERT AND ORIENTED X4, BEING DISCHARGED HOME. PATIENT EDUCATED TO CONTINUE HIS HOME MEDICATIONS PRESCRIBED BY MD. EDUCATED TO CALL ON WEDNESDAY TO SCHEDULE AN APPOINTMENT WITH HIS VISUAL DEVELOPER DR. CONNOR AT [facility]. IV REMOVED WITHOUT COMPLICATIONS. ALL QUESTIONS ANSWERED, PATIENT VERBALIZED COMPLETE UNDERSTANDING. AWAITING BROTHER TO GENERAL OFFICE WORKER THE PATIENT.
--- NOTE | 2025-02-17 15:49 | DS ---
[facility] DISCHARGE SUMMARY Date Patient Seen: Feb 17, 2025 Time of Visit: 15:49 Supervising Physician: DAVID CARY MD Primary Care Physician: COURTNEY CROSS MD (PCP) Outpatient Specialists: Cardiology Dr. Howard Inpatient Consults: Cardiology PROBLEM LIST: Chest pain ruled out ACS, heart score for major cardiac events =5 Hypertension. Hyperlipidemia. GERD. History of severe three-vessel coronary artery disease s/p mid and distal RCA stents, high EOMI stenting, distal LAD stenting, mid LAD stenting by Mirtha Lindsey II, MD 02/06/24. HOSPITAL COURSE: This is a case of a 70-year-old man with a past medical history of hypertension, hyperlipidemia, coronary artery disease with history of multiple stents in January of last year. He follows regularly with Dr. Lavell swift but states he missed his appointment that was three months ago. He admits to compliance with his medications with aspirin Plavix and statin. This gentleman came in secondary to chest pain that has been ongoing over the course of the last several weeks that happens without any provocation. It happens either at rest or while walking. He denies overly exerting himself so does not know if he would ever get chest pain during this situations. He states the chest pain is a pinprick sensation in the center of his chest lasting s econds and resolved spontaneously. It was not have any associated presyncope, syncope, dizziness, vision blurring, palpitations or diaphoresis during these episodes. This most recent episode lasted a little longer than usual and as a result decided to seek further medical care. The pain did not radiate and lasted a couple of seconds. He was monitored overnight and troponins were negative x4. No further chest pain whiile in hospital and is asking to go home. At this time the patient was advised to follow up with Cardiology in 1-2 weeks - Currently no acute Coronary syndrome noted, patient advised he is at risk for reoccurence and therefore we recommend he see his dock attendant megha for further evaluation and assessment to ensure his sents are still patent. Patient was given return precautions should chest pain reoccur before his appointment he was to return to the hospital. He verbalized understanding. Continued Medications: Aspirin (Lo-Dose Aspirin EC) 81 Mg Tablet. 81 MG PO DAILY, TAB Atorvastatin Calcium (Lipitor) 40 Mg Tablet 40 MG PO HS for 30 Days, #30 TAB Clopidogrel Bisulfate (Plavix) 75 Mg Tablet 75 MG PO DAILY for 30 Days, #30 TAB Metoprolol Tartrate (Lopressor) 25 Mg Tab 25 MG PO BID for 30 Days, #60 TAB PHYSICAL EXAM: GENERAL: Alert, weak, awake oriented x 3 HEENT: EOMI, Sclera non icteric, moist mucosa NECK: Supple, no JVD, trachea midline LUNGS: Clear breath sounds bilaterally. No wheezes HEART: Regular rate and rhythm. Normal S1 and S2, without murmurs ABD: Abdomen soft, nontender. Bowel sounds present EXT: No clubbing cyanosis or edema NEURO: Alert and oriented to person, follows commands FOLLOW-UP: Follow-up with PCP in 2-[address] Sofia in 1-2 weeks Return precaution provided RECOMMENDATIONS: See Discharge Instructions This case was seen and discussed with my supervising physician. More than 30 minutes spent on discharge process, including evaluation of the patient, discussion with nursing staff, medication reconciliation and follow-up appointments WONG AHUMADA Feb 17, 2025 15:49
== END 2025-02-17 12:32 | disposition home or self-care (01) ==
LOC: EDH 08:24 → INTOOBSV 11:56 → EDHIP 11:56
PROVIDERS: ADMIT Internal Medicine; ATTEND Internal Medicine
DX: R07.89 Other chest pain (principal); I10 Essential (primary) hypertension; E78.5 Hyperlipidemia, unspecified; I25.10 Atherosclerotic heart disease of native coronary artery without angina pectoris; K21.9 Gastro-esophageal reflux disease without esophagitis; I25.2 Old myocardial infarction; Z95.5 Presence of coronary angioplasty implant and graft; Z90.49 Acquired absence of other specified parts of digestive tract; Z79.899 Other long term (current) drug therapy
CPT/HCPCS: 99285; 93306; 71045; 82550 ×4; 80076; 84484 ×4; 80048 ×2; 83880; 83690; 85025 ×2; 85378; 81001; 36415 ×2; 93356; 93005; 96372; G0378; J1650